=== PATIENT | female | born 1975 | race African-American/Black ===

== ENCOUNTER 2019-08-12 17:41 | Emergency (ER) | payer MEDICAID ==
[~2019-08-12] VITALS: Ht 182.9 cm; Wt 102.1 kg
[~2019-08-12 17:41] MED LIST: DEPO SHOT
[2019-08-12 18:23] VITALS: BP 117/80
[2019-08-12] MEDS ORDERED: FLUORESCEIN SOD 1 MG TEST STRIP LEFTEYE ONE (19:00)
[2019-08-12] MEDS ORDERED: TETRACAINE HCL 0.5% OPTH(EYE) SOLN 4ML LEFTEYE ONE (19:00)
== END 2019-08-12 20:10 | disposition home or self-care (01) ==
LOC: ER 17:41
DX: H57.12 Ocular pain, left eye (principal)

== ENCOUNTER 2022-10-25 03:06 | Emergency (ER) | payer MEDICAID ==
[~2022-10-25] VITALS: Ht 182.9 cm; Wt 94.3 kg
[2022-10-25] MEDS ORDERED: LIDOCAINE W/ EPINEPHRINE 2% INJ 20ML VIAL ONE (07:20)
[2022-10-25 07:30] VITALS: BP 126/83; PULSE 108; RESP 18; TEMP 98.6; O2SAT 95
[2022-10-25] MEDS ORDERED: KETOROLAC TROMETH 60MG/2ML VIAL IM ONE (07:30)
[2022-10-25] MEDS ORDERED: LIDOCAINE 1% HCL (LOCAL ANESTH.) INJ 20ML MDV IJ ONE (07:30)
[2022-10-25] MEDS ORDERED: cefTRIAXone SOD 1,000 MG VL IM ONE (07:30)
[2022-10-25] MEDS ORDERED: IBUP-1456 PO (07:44)
[2022-10-25] MEDS ORDERED: BACDST PO (07:44)
== END 2022-10-25 08:02 | disposition home or self-care (01) ==
LOC: ER 03:10
DX: N75.1 Abscess of Bartholin's gland (principal)
CPT/HCPCS: 56420; 96372; 99284; J0696; J1885

== ENCOUNTER 2022-10-27 08:04 | Emergency (ER) | payer MEDICAID ==
[~2022-10-27] VITALS: Ht 182.9 cm; Wt 94.0 kg
[~2022-10-27 08:04] MED LIST changes: +BACDST PO; +IBUP-1456 PO
[2022-10-27 08:13] VITALS: BP 114/74; PULSE 89; RESP 16; TEMP 97.6; O2SAT 96
== END 2022-10-27 09:20 | disposition home or self-care (01) ==
LOC: ER 08:04
DX: N75.1 Abscess of Bartholin's gland (principal)